=== PATIENT | female | born 1990 | race Caucasian/White ===

== ENCOUNTER 2019-12-13 11:36 | Emergency (ER) | payer OTHER, SELFPAY ==
[2019-12-13 11:49] VITALS: BP 139/99; PULSE 116; RESP 20; TEMP 36.6; O2SAT 97
--- NOTE | 2019-12-13 11:49 | ED.URI ---
HPI - URI/Sore Throat General Chief Complaint: Upper Respiratory Infection Stated Complaint: sore throat/fever Time Seen by Provider: 12/13/19 11:49 Source: patient Mode of arrival: ambulatory Limitations: no limitations History of Present Illness HPI Narrative: A 29 y/o female, who is a nonsmoker/nondrinker, presents to with c/o a sore throat. Pt woke up with the sore throat on (2 days ago) with intermittent fevers as high as 101 degrees F. Pt's 3 year old son was recently diagnosed with pink eye and he was prescribed eye drops. 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 She denies a cough, SOB,recent travel, an earache, wheeze, rhinorrhea, N/V/D and a chance of . Patient advised they may have hypertension or prehypertension and to see their doctor for recheck within 4 weeks Onset (ago): day(s) (2) Related Data Home Medications Medication Instructions Recorded Confirmed estradiol 0.0375 mg EVERY OTHER DAY 12/13/19 12/13/19 norethindrone-ethin estradiol 1 tablet DAILY 12/13/19 12/13/19 [Nortrel 1/35 (28)] Allergies Allergy/AdvReac Type Severity Reaction Status Date / Time prochlorperazine Allergy Mild Verified 05/29/18 14:28 Review of Systems Review of Systems: Narrative: General/Constitutional: Reports: fever 101 degrees F; Denies: weight loss Eyes: Denies: Redness,discharge Ears/Nose/Throat: Reports: sore throat; Denies: Epistaxis,ear discharge, earache, rhinorrhea Respiratory: Denies: cough, Hemoptysis Gastrointestinal: Denies: Vomiting, Bleeding-rectal Skin: Denies: Lumps, eruption Neurologic: Denies: Focal Weakness,Sz Hematologic: Denies: Petechiae/Purpura Psychiatric: Denies: Suicidal ideation All systems reviewed & are unremarkable except as noted in HPI and below PMFSH Past Medical History Medical History IgA nephropathy Tuberculosis Surgical History Surgical History History of biopsy kidney Previous section Social History Social History (Updated 12/13/19 @ 12:02 by Dorota Chau Smoking status: Former smoker Alcohol intake: never Gender identity (if verbalized by the patient): Female Comments No PCP on file. At time of signature, agree with nursing past medical, surgical, social and family history. There is no relevant family history pertinent to the presenting complaint Exam Narrative: Exam Narrative: General Appearance: Well appearing, Well nourished EYE: PERRLA, Conjunctiva clear Ears: Auditory canal normal, TM normal Nose: Rhinorrhea, Mucousal erythema Mouth/Throat: MM moist, Uvula midline, Pharyngeal erythema Neck: Supple, No adenopathy Respiratory: No respiratory distress, Breath sounds equal, Clear to auscultation Cardiovascular: RRR, No JVD Musculoskeletal: Non tender, Normal strength Skin: Warm, Dry Neurological: A&O x3, CN II-XII intact Psychiatric: Normal mood, Normal affect Course Vital Signs Vital signs: Vital Signs Temperature 98 F 12/13/19 11:49 Pulse Rate 116 H 12/13/19 11:49 Respiratory Rate 20 12/13/19 11:49 Blood Pressure 139/99 H 12/13/19 11:49 Pulse Oximetry 97 12/13/19 11:49 Temperature 98 F 12/13/19 11:49 Pulse Rate 116 H 12/13/19 11:49 Respiratory Rate 20 12/13/19 11:49 Blood Pressure 139/99 H 12/13/19 11:49 Pulse Oximetry 97 12/13/19 11:49 MDM - URI/Sore Throat Lab Data Labs: Influenza A Screen Negative Reference Range: Negative Influenza A Screen Negative Reference Range: Negative Influenza B Screen Negative Reference Range: Negative Influenza B Screen Negative Reference Range: Negative Strep Screen Presumptive Negative *(Reference Range: Negative)* Discharge Plan Discharge Clinical Impression: Pharyngitis Patient Disposition: Home, Self-Car
== END 2019-12-13 12:05 | disposition home or self-care (01) ==
PROVIDERS: Emergency Provider Emergency Medicine
DX: J02.9 Acute pharyngitis, unspecified (principal); N02.8 Recurrent and persistent hematuria with other morphologic changes
CPT/HCPCS: 87081; 87804; 87880; 99213; G0463

== ENCOUNTER → 2020-06-18 11:43 | Outpatient (CLI) | payer OTHER, SELFPAY ==
--- NOTE | ~2020-06-18 | US_ITS ---
EXAMINATION: US thyroid EXAM DATE: 06/18/2020 12:01 INDICATION: Thyromegaly. TECHNIQUE: Multiple grayscale and Doppler images of the thyroid were obtained (by a technologist who performed the scan) and subsequently reviewed. Individual nodules and recommendations may be reporte d in accordance with TI-RADS system as designated by the 2017 ACR White Paper TI-RADS committee. Comp zeinason is made to prior examination from 10/15/2018. FINDINGS: Right there are lobe measures 5.3 x 1.6 x 1.67 m, the left measuring 4.2 x 1.2 x 1.2 cm. There is dick ogeneous thyroid echogenicity. There is a tiny, 3 mm right thyroid lobe nodule not clinically signifi cant. Measurements are mildly enlarged. IMPRESSION: 1. Mild thyromegaly. Reviewed, dictated and finalized at location B. IMPRESSION: 1. Mild thyromegaly.
== END ==
PROVIDERS: PCP Physician Assistant; Visit Provider Physician Assistant
DX: E01.0 Iodine-deficiency related diffuse (endemic) goiter (principal); R13.10 Dysphagia, unspecified
CPT/HCPCS: 76536

== ENCOUNTER 2020-07-31 09:59 | Emergency (ER) | payer OTHER, SELFPAY ==
--- NOTE | ~2020-07-31 | XR_ITS ---
EXAMINATION: XR chest 2V DATE: 07/31/2020 11:17 INDICATION: Dizziness and nausea TECHNIQUE: AP and lateral views of the chest are obtained. COMPARISON: 12/18/2011 FINDINGS: The lungs are free of acute opacities. There is no pleural effusion or pneumothorax. The ca rdiomediastinal silhouette is normal. The visualized bones and soft tissues are unremarkable. IMPRESSION: 1. No acute cardiopulmonary abnormality. Reviewed, dictated and finalized at location A. OMECHANISM ASSEMBLER
--- NOTE | ~2020-07-31 | CT_ITS ---
EXAMINATION: CT brain wo con INDICATION: Dizziness and headache COMPARISON: None TECHNIQUE: Standard unenhanced head CT. The dose-length product (DLP) was 605.33 mGy-cm. The mA was a djusted according to patient size. Iterative reconstruction technique was employed. FINDINGS: There is no intracranial hemorrhage, acute infarction, or abnormal mass lesion. The ventric les are normal. There is no abnormal mass effect or midline shift. The young-white matter differentiat ion is normal. The basal cisterns are patent. The orbits are normal. The paranasal sinuses, mastoids and calvarium are normal. IMPRESSION: 1. No acute intracranial abnormality. Reviewed, dictated and finalized at location A. NHOUSE OR NURSERY TRANSPLANTER
[2020-07-31 10:06] VITALS: BP 143/105; PULSE 92; RESP 20; TEMP 36; O2SAT 100
--- NOTE | 2020-07-31 10:48 | ECG_ITS ---
Measurements Intervals [place] Rate: 81 P: 20 DC: 129 QRS: 7 QRSD: 84 T: 48 QT: 383 QTc: 446 Interpretive Statements SINUS RHYTHM LOW QRS VOLTAGE IN PRECORDIAL LEADS BORDERLINE ECG Electronically Signed On 07-31-2020 16:05:05 VERIFICATION SPECIALIST by Sherwin Dias D.O.
--- NOTE | 2020-07-31 10:50 | ED.HA ---
HPI - Headache General Chief Complaint: Headache Stated Complaint: headache , N/V dizziness Time Seen by Provider: 07/31/20 10:10 Source: patient Mode of arrival: ambulatory Limitations: no limitations History of Present Illness HPI Narrative: This is a 30-year-old female that presents to the emergency department for migraine since yesterday. Reports history of migraines. Reports she tried to take her triptan at home without relief. Reports vomiting and dizziness with her migraines. Also reports she feels palpitations. Reports her migraines have been worsening since March. She saw her primary for this and has tried several preventative medicines without relief. Reports she has history of IgA nephropathy and was worried that she may be getting dehydrated from vomiting as her urine was dark. Denies fever, vision changes, numbness, or weakness. Related Data Home Medications Medication Instructions Recorded Confirmed estradiol 0.0375 mg EVERY OTHER DAY 12/13/19 12/13/19 norethindrone-ethin estradiol 1 tablet DAILY 12/13/19 12/13/19 [Nortrel /35 (28)] ondansetron HCl PRN 07/31/20 rizatriptan mg PRN 07/31/20 topiramate BID 07/31/20 Allergies Allergy/AdvReac Type Severity Reaction Status Date / Time prochlorperazine Allergy Intermediate Muscle Verified 07/31/20 10:14 Spasms Review of Systems Review of Systems: Narrative: CONSTITUTIONAL: Denies fever EYES: Denies visual changes CARDIOVASCULAR: Reports palpitations. Denies chest pain RESPIRATORY: Denies dyspnea. GASTROINTESTINAL: Reports nausea, vomiting NEUROLOGIC: Reports headache. Denies numbness, or weakness. All systems reviewed & are unremarkable except as noted in HPI and below PMFSH Past Medical History Medical History (Updated 07/31/20 @ 13:53 by Tracy Cruz PA-C) IgA nephropathy Tuberculosis Surgical History Surgical History History of biopsy kidney Previous section Social History Social History (Updated 12/13/19 @ 12:02 by Dorota Heredia) Smoking status: Former smoker Alcohol intake: never Gender identity (if verbalized by the patient): Female Exam Narrative: Exam Narrative: GENERAL: Well-appearing, well-nourished, and in no acute distress. HEAD: Normocephalic, atraumatic. EYES: PERRLA and EOMI. ENT: Nares clear, no rhinorrhea or epistaxis. Mucous membranes moist. Oropharynx without tonsillar hypertrophy exudate or other lesions. Bilateral TMs pearly young non-bulging NECK: Supple. No adenopathy or masses. CHEST: Clear to auscultation. No respiratory distress. No wheezes rales or rhonchi HEART: Regular rate and rhythm. No murmur heard. Normal peripheral pulses. EXTREMITIES: Normal range of motion. No edema. Strength equal in bilateral upper and lower extremities (5/5) SKIN: Warm, dry, no rash. NEURO: No focal deficits. Alert and oriented x3. Cranial nerves II through XII grossly intact. Normal [id number] PSYCH: Normal mood and affect Course Vital Signs Vital signs: Vital Signs Temperature 96.8 F L 07/31/20 10:06 Pulse Rate 92 07/31/20 10:06 Respiratory Rate 20 07/31/20 10:06 Blood Pressure 143/105 H 07/31/20 10:06 Pulse Oximetry 100 07/31/20 10:06 Temperature 96.8 F L 07/31/20 10:06 Pulse Rate 95 07/31/20 12:34 Respiratory Rate 20 07/31/20 10:06 Blood Pressure 121/92 H 07/31/20 12:34 Pulse Oximetry 100 07/31/20 10:06 MDM - Headache MDM Narrative Medical decision making narrative: Patient presents to the emergency department for worsening migraines. She is afebrile and nontoxic-appearing. She is neurologically intact. Reports relief with migraine cocktail. CBC does show mild hemoconcentration. Metabolic panel is normal. UA with 1+ ketones and blood. Patient does have history of IgA nephropathy. Blood pressure is little elevated today, was instructed that she should follow-up with her technology project manager soon. CT sca
[2020-07-31 11:02] LABS: Basophils Percent Auto 0.3 % (0.2-1.2); Eosinophils Percent Auto 0.2 % (0-4.4); Hemoglobin 15.5 g/dL (12.0-15.0); Immature Granulocyte Absolute 0.04 K/mm3 (0.00-0.031); Immature Granulocyte Percent A 0.4 % (0-0.5); Lymphocytes Absolute Auto 1.16 K/mm3 (0.9-3.2); Lymphocytes Percent Auto 11.6 % (18.3-44.2); Mean Corpuscular HGB Conc 33.7 g/dl (32-36); Mean Corpuscular Hemoglobin 31.1 pg (26-34); Mean Corpuscular Volume 92.4 fl (80-100); Mean Platelet Volume 9.3 fl (7.4-10.4); Monocytes Absolute Auto 0.3 K/mm3 (0.1-0.6); Monocytes Percent Auto 2.7 % (2.6-8.5); Neutrophils Absolute Auto 8.5 K/mm3 (1.3-6.7); Neutrophils Percent Auto 84.8 % (45.5-73.1); Platelet Count Result 376 k/mm3 (150-375); Red Blood Count 4.98 M/mm3 (4.2-5.4); Red Cell Distribution Width 12.7 % (11.5-14.5)
[2020-07-31 11:14] LABS: Anion Gap 12 mmol/L (8-16); Blood Urea Nitrogen 12 mg/dL (7-17); Calcium 9.6 mg/dL (8.4-10.2); Carbon Dioxide 24 mmol/L (22-30); Chloride 106 mmol/L (98-107); Estimated CRCL calculation 122 ml/min; Estimated Glomerular Filt Rate > 60; Glucose 106 mg/dL (65-105); Potassium 3.9 mmol/L (3.4-5.0); Sodium 142 mmol/L (137-145)
--- NOTE | 2020-07-31 11:30 | PC.NURSE ---
pt rating her headache 04/02. pt in darkened room for comfort. meds given per order
[2020-07-31] MEDS: SODIUM CHLORIDE 0.9% IV 1,000 ML 999 ML IV CONT (11:32)
[2020-07-31] MEDS: diphenhydrAMINE HCl INJ 50 MG/ML VIAL 25 MG IV PUSH (11:32)
[2020-07-31] MEDS: KETOROLAC 15 MG/ML VIAL (*BKC) IV PUSH (11:35)
[2020-07-31] MEDS: METOCLOPRAMIDE HCL INJ 10 MG/2 ML VIAL IV PUSH (11:37)
[2020-07-31 12:33] VITALS: BP 111/70; PULSE 83
[2020-07-31 12:34] VITALS: BP 116/82; BP 121/92; PULSE 80; PULSE 95
[2020-07-31 13:09] LABS: Add Urine Microscopic? YES; Appearance Urine Clear (Clear); Bilirubin Urine Negative (Negative); Blood Urine 2+ (Negative); Color Urine Yellow (Yellow); Glucose Urine UA Negative (Negative); Ketones Urine 1+ mg/dL (Negative); Leukocyte Esterase Ur Negative LEU/UL (Negative); Mucus Urine Few /lpf; Nitrate Urine Negative (Negative); Protein Urine 1+ mg/dL (Negative); Specific Grav Ur 1.029 (1.001-1.035); Squamous Epithelial Cell Urine Rare /hpf (Few); Urobilinogen Urine Negative mg/dL (<2.0); WBC Urine 0-3 /hpf
[2020-07-31 14:20] VITALS: BP 121/92; PULSE 83; RESP 18; O2SAT 100
== END 2020-07-31 14:22 | disposition home or self-care (01) ==
PROVIDERS: Physician Assistant; Emergency Provider Emergency Medicine; PCP Physician Assistant
DX: G43.909 Migraine, unspecified, not intractable, without status migrainosus (principal); N02.8 Recurrent and persistent hematuria with other morphologic changes; Z86.11 Personal history of tuberculosis; Z87.891 Personal history of nicotine dependence; R94.31 Abnormal electrocardiogram [ECG] [EKG]
CPT/HCPCS: 36415; 70450; 71046; 80048; 81001; 81025; 85025; 93005; 96361; 96374; 96375; 99284; J0131; J1100; J1200; J1885; J2765; J7030